=== PATIENT | female | born 1945 | race Two or more races ===

== ENCOUNTER 2017-04-30 12:59 | Inpatient (IN) | payer MEDICARE, OTHER ==
[~2017-04-30] VITALS: Ht 157.5 cm; Wt 64.9 kg
[2017-04-30 13:47] LABS: Basophils # (auto) 0.1 uL; Basophils % (auto) 0.7 % (0.0-2.0); Eosinophils # (auto) 0.1 uL; Eosinophils % (auto) 1.3 % (0.0-7.0); Hematocrit 41.8 % (36.0-46.0); Hemoglobin 13.6 g/dL (12.2-16.2); Lymphocytes # (auto) 2.6 uL; Lymphocytes % (auto) 28.8 % (10.0-50.0); Mean Corpuscular Hemoglobin 29.9 pg (28.0-32.0); Mean Corpuscular Hgb Conc. 32.6 g/dL (32.0-36.0); Mean Corpuscular Volume 91.6 fL (80.0-100.0); Monocytes # (auto) 0.5 uL; Monocytes % (auto) 5.4 % (0.0-12.0); Neutrophils # (auto) 5.8 uL; Neutrophils % (auto) 63.8 % (37.0-80.0); Nucleated Red Blood Cells % 0.1 %; Platelet Count (auto) 260 10^3/uL (140-450); Red Blood Cells 4.56 10^6/uL (4.0-5.20); White Blood Cell 9.1 10^3/uL (4.4-10.8)
[2017-04-30 13:54] LABS: Albumin 3.6 g/dL (3.4-5.0); BUN/Creatinine Ratio 20.7; Calcium 9.6 mg/dL (8.5-10.1); Potassium 3.7 mmol/L (3.5-5.1)
[2017-04-30 14:13] LABS: Bilirubin, Total 0.5 mg/dL (0.2-1.0); Total Protein 7.6 g/dL (6.4-8.2)
[2017-04-30] MEDS ORDERED: NITROGLYCERIN 0.4 MG SL TAB SL PRN ×2 (14:30→14:45)
[2017-04-30] MEDS ORDERED: DEXTROSE (50%) 50ML SYRG IV PRN ×2 (14:30→14:45)
[2017-04-30] MEDS ORDERED: PROMETHAZINE HCL 25 MG/ML 1ML IV PRN ×2 (14:30→14:45)
[2017-04-30] MEDS ORDERED: LACTULOSE 20Gm/30ML SOLN PO PRN ×4 (14:30→14:45)
[2017-04-30] MEDS ORDERED: TEMAZEPAM 15 MG CAP PO PRN (14:30)
[2017-04-30] MEDS ORDERED: MORPHINE SULFATE 4 MG/ML SYR/VIAL IV PRN ×3 (14:30→14:45)
[2017-04-30] MEDS ORDERED: ASPirin 81 mg TAB PO ONE ×3 (14:30→15:45)
[2017-04-30] MEDS ORDERED: OSELTAMIVIR 75 MG CAP PO ONE ×2 (14:30)
[2017-04-30] MEDS ORDERED: ACETAMINOPHEN 500 MG TAB PO PRN ×2 (14:30→14:45)
[2017-04-30] MEDS ORDERED: FUROSEMIDE 40 MG/4 ML VIAL IV ONE ×2 (14:30)
[2017-04-30] MEDS ORDERED: LORazepam 0.5 MG TAB PO PRN (14:30)
[2017-04-30] MEDS ORDERED: HYDROcodone-ACET 5/325MG TAB PO PRN (14:30)
[2017-04-30] MEDS ORDERED: ALBUTEROL SULF 2.5 MG/0.5ML(0.5%) NEB SOLN NEB PRN ×2 (14:30→14:45)
[2017-04-30 15:22] VITALS: BP 149/51
[2017-04-30] MEDS ORDERED: AZITHROMYCIN 500MG/ 250ML 250 ML IV ONE (15:30)
[2017-04-30] MEDS ORDERED: cefTRIAXone 1GM/10ml IVPUSH 10 ML IV ONE (15:30)
[2017-04-30] MEDS ORDERED: ENOXAPARIN SOD 40 MG/0.4 ML SYRINGE SC ONE (15:30)
[2017-04-30] MEDS ORDERED: POTASSIUM CHL 20 Meq TABLET PO ONE (15:45)
[2017-04-30] MEDS ORDERED: NITROGLYCERIN 0.2MG/HR TOPICAL PATCH TD ONE (15:45)
[2017-04-30] MEDS ORDERED: PANTOPRAZOLE 40 MG TAB PO ONE (15:45)
[2017-04-30] MEDS ORDERED: CARVEDILOL 3.125 MG TAB PO ONE (15:45)
[2017-04-30 16:40] VITALS: BP 142/73
[2017-04-30] MEDS: ACCU-CHEK COMFORT CURVE STRIP VI SCH ×2 (17:00→22:07)
[2017-04-30] MEDS ORDERED: ACCU-CHEK COMFORT CURVE STRIP VI SCH (17:00)
[2017-04-30] MEDS ORDERED: InsuLIN REG 1unit/0.01ml Soln (100units/ml) SC SCH (17:00)
[2017-04-30] MEDS: InsuLIN REG 1unit/0.01ml Soln (100units/ml) SC SCH ×2 (17:00→22:07)
[2017-04-30] MEDS ORDERED: PNEUMOCOCCAL VACC POLYS 25 MCG/0.5 ML VIAL IM ONE (17:15)
[2017-04-30] MEDS ORDERED: ALBUTEROL SULF 2.5 MG/0.5ML(0.5%) NEB SOLN NEB SCH (18:00)
[2017-04-30] MEDS: ALBUTEROL SULF 2.5 MG/0.5ML(0.5%) NEB SOLN NEB SCH ×2 (18:45→23:59)
[2017-04-30 20:00] VITALS: BP 119/69
[2017-04-30 21:37] VITALS: BP 119/69
[2017-04-30] MEDS ORDERED: SODIUM CHLOR 0.9% PF (SALINE LOCK) 10ML VIAL IV SCH (22:00)
[2017-04-30] MEDS ORDERED: OSELTAMIVIR 75 MG CAP PO SCH ×2 (22:00)
[2017-04-30] MEDS ORDERED: CARVEDILOL 3.125 MG TAB PO SCH (22:00)
[2017-04-30] MEDS: SODIUM CHLOR 0.9% PF (SALINE LOCK) 10ML VIAL IV SCH (22:05)
[2017-04-30] MEDS: CARVEDILOL 3.125 MG TAB PO SCH (22:06)
[2017-04-30] MEDS: TEMAZEPAM 15 MG CAP PO PRN (23:56)
[2017-05-01 04:50] VITALS: BP 123/64
[2017-05-01] MEDS: ALBUTEROL SULF 2.5 MG/0.5ML(0.5%) NEB SOLN NEB SCH ×3 (06:20→19:45)
[2017-05-01] MEDS: SODIUM CHLOR 0.9% PF (SALINE LOCK) 10ML VIAL IV SCH ×3 (06:31→21:44)
[2017-05-01] MEDS: ACCU-CHEK COMFORT CURVE STRIP VI SCH ×4 (06:31→21:43)
[2017-05-01] MEDS: InsuLIN REG 1unit/0.01ml Soln (100units/ml) SC SCH ×4 (06:32→21:44)
[2017-05-01 06:39] LABS: Urine Bacteria FEW /hpf (None Seen); Urine Blood Negative /uL (Negative); Urine Specific Gravity 1.013 (1.001-1.035); Urine WBC 11 /hpf (0 - 5)
[2017-05-01 06:55] LABS: Basophils # (auto) 0.1 uL; Basophils % (auto) 0.7 % (0.0-2.0); Eosinophils # (auto) 0.3 uL; Eosinophils % (auto) 2.9 % (0.0-7.0); Hematocrit 37.8 % (36.0-46.0); Hemoglobin 12.5 g/dL (12.2-16.2); Lymphocytes # (auto) 3.2 uL; Mean Corpuscular Hemoglobin 30.1 pg (28.0-32.0); Mean Corpuscular Hgb Conc. 33.2 g/dL (32.0-36.0); Mean Corpuscular Volume 90.8 fL (80.0-100.0); Monocytes # (auto) 0.5 uL; Neutrophils # (auto) 4.8 uL; Neutrophils % (auto) 54.4 % (37.0-80.0); Nucleated Red Blood Cells % 0.1 %; Platelet Count (auto) 243 10^3/uL (140-450); Red Blood Cells 4.16 10^6/uL (4.0-5.20); Red Cell Distribution Width 13.6 % (11.8-14.3); White Blood Cell 8.8 10^3/uL (4.4-10.8)
[2017-05-01] MEDS ORDERED: LISI-275 PO (07:03)
[2017-05-01] MEDS ORDERED: LOVA20TA4 PO (07:03)
[2017-05-01] MEDS ORDERED: METF-370 PO (07:03)
[2017-05-01 07:19] LABS: Bilirubin, Total 0.5 mg/dL (0.2-1.0); Calcium 8.9 mg/dL (8.5-10.1); Potassium 3.7 mmol/L (3.5-5.1); Total Protein 6.4 g/dL (6.4-8.2)
[2017-05-01 08:00] VITALS: BP 117/69
[2017-05-01] MEDS: FUROSEMIDE 40 MG/4 ML VIAL IV SCH (08:57)
[2017-05-01] MEDS: ENOXAPARIN SOD 40 MG/0.4 ML SYRINGE SC SCH (08:57)
[2017-05-01] MEDS: ENALAPRIL MALEATE 2.5 MG TAB PO SCH ×2 (08:58→21:34)
[2017-05-01] MEDS: CARVEDILOL 3.125 MG TAB PO SCH ×2 (08:58→21:36)
[2017-05-01] MEDS: POTASSIUM CHL 20 Meq TABLET PO SCH (08:59)
[2017-05-01] MEDS: PANTOPRAZOLE 40 MG TAB PO SCH (08:59)
[2017-05-01] MEDS: ASPirin 81 mg TAB PO SCH (08:59)
[2017-05-01] MEDS ORDERED: cefTRIAXone 1GM/10ml IVPUSH 10 ML IV SCH ×2 (09:00)
[2017-05-01] MEDS: NITROGLYCERIN 0.2MG/HR TOPICAL PATCH TD SCH (09:00)
[2017-05-01] MEDS ORDERED: ASPirin 81 mg TAB PO SCH (10:00)
[2017-05-01] MEDS ORDERED: ENALAPRIL MALEATE 2.5 MG TAB PO SCH ×2 (10:00)
[2017-05-01] MEDS ORDERED: FUROSEMIDE 40 MG/4 ML VIAL IV SCH (10:00)
[2017-05-01] MEDS ORDERED: ENOXAPARIN SOD 40 MG/0.4 ML SYRINGE SC SCH (10:00)
[2017-05-01] MEDS ORDERED: NITROGLYCERIN 0.2MG/HR TOPICAL PATCH TD SCH (10:00)
[2017-05-01] MEDS ORDERED: PANTOPRAZOLE 40 MG TAB PO SCH (10:00)
[2017-05-01] MEDS ORDERED: AZITHROMYCIN 500MG/ 250ML 250 ML IV SCH ×2 (10:00)
[2017-05-01] MEDS ORDERED: POTASSIUM CHL 20 Meq TABLET PO SCH (10:00)
[2017-05-01 12:00] VITALS: BP 107/63
[2017-05-01 17:00] VITALS: BP 127/69
[2017-05-01 20:00] VITALS: BP 101/70
[2017-05-01 22:00] VITALS: BP 127/67
[2017-05-02] MEDS: ALBUTEROL SULF 2.5 MG/0.5ML(0.5%) NEB SOLN NEB SCH ×4 (01:08→19:23)
[2017-05-02 05:00] VITALS: BP 101/57
[2017-05-02 05:45] LABS: Basophils # (auto) 0 uL; Basophils % (auto) 0.5 % (0.0-2.0); Eosinophils # (auto) 0.3 uL; Eosinophils % (auto) 3.6 % (0.0-7.0); Hematocrit 36.4 % (36.0-46.0); Hemoglobin 12.2 g/dL (12.2-16.2); Mean Corpuscular Hemoglobin 30.1 pg (28.0-32.0); Mean Corpuscular Hgb Conc. 33.4 g/dL (32.0-36.0); Mean Corpuscular Volume 90.1 fL (80.0-100.0); Monocytes # (auto) 0.7 uL; Monocytes % (auto) 7.6 % (0.0-12.0); Neutrophils % (auto) 55.3 % (37.0-80.0); Nucleated Red Blood Cells % 0.1 %; Platelet Count (auto) 243 10^3/uL (140-450); Red Blood Cells 4.04 10^6/uL (4.0-5.20); Red Cell Distribution Width 13.5 % (11.8-14.3); White Blood Cell 9.1 10^3/uL (4.4-10.8)
[2017-05-02] MEDS ORDERED: SODIUM CHLORIDE 0.9 % NEB SOLN 3ML NEB ONE ×2 (06:02→11:43)
[2017-05-02 06:04] LABS: Albumin 2.9 g/dL (3.4-5.0); BUN/Creatinine Ratio 22.8; Bilirubin, Total 0.4 mg/dL (0.2-1.0); Calcium 8.5 mg/dL (8.5-10.1); Potassium 3.7 mmol/L (3.5-5.1); Total Protein 6.3 g/dL (6.4-8.2)
[2017-05-02] MEDS: SODIUM CHLOR 0.9% PF (SALINE LOCK) 10ML VIAL IV SCH ×3 (06:24→21:36)
[2017-05-02] MEDS: ACCU-CHEK COMFORT CURVE STRIP VI SCH ×4 (06:24→21:34)
[2017-05-02] MEDS: InsuLIN REG 1unit/0.01ml Soln (100units/ml) SC SCH ×4 (06:27→21:35)
[2017-05-02 08:51] VITALS: BP 126/59
[2017-05-02] MEDS: ENOXAPARIN SOD 40 MG/0.4 ML SYRINGE SC SCH (09:11)
[2017-05-02] MEDS: FUROSEMIDE 40 MG/4 ML VIAL IV SCH (09:11)
[2017-05-02] MEDS: NITROGLYCERIN 0.2MG/HR TOPICAL PATCH TD SCH (09:12)
[2017-05-02] MEDS: POTASSIUM CHL 20 Meq TABLET PO SCH (09:12)
[2017-05-02] MEDS: ENALAPRIL MALEATE 2.5 MG TAB PO SCH ×2 (09:13→21:34)
[2017-05-02] MEDS: PANTOPRAZOLE 40 MG TAB PO SCH (09:13)
[2017-05-02] MEDS: CARVEDILOL 3.125 MG TAB PO SCH ×2 (09:13→21:33)
[2017-05-02] MEDS: ASPirin 81 mg TAB PO SCH (09:13)
[2017-05-02 12:00] VITALS: BP 132/56
[2017-05-02 17:21] VITALS: BP 106/57
[2017-05-02] MEDS: TEMAZEPAM 15 MG CAP PO PRN (21:39)
[2017-05-02 22:09] VITALS: BP 135/65
[2017-05-03] MEDS: ALBUTEROL SULF 2.5 MG/0.5ML(0.5%) NEB SOLN NEB SCH ×4 (00:45→19:08)
[2017-05-03 05:00] VITALS: BP 105/58
[2017-05-03] MEDS: SODIUM CHLOR 0.9% PF (SALINE LOCK) 10ML VIAL IV SCH ×3 (05:45→22:34)
[2017-05-03] MEDS: ACCU-CHEK COMFORT CURVE STRIP VI SCH ×4 (06:01→22:35)
[2017-05-03] MEDS: InsuLIN REG 1unit/0.01ml Soln (100units/ml) SC SCH ×4 (06:02→22:34)
[2017-05-03 09:00] VITALS: BP 112/63
[2017-05-03 09:27] VITALS: BP 105/58
[2017-05-03] MEDS: PANTOPRAZOLE 40 MG TAB PO SCH (09:52)
[2017-05-03] MEDS: POTASSIUM CHL 20 Meq TABLET PO SCH (09:52)
[2017-05-03] MEDS: ASPirin 81 mg TAB PO SCH (09:52)
[2017-05-03] MEDS: ENOXAPARIN SOD 40 MG/0.4 ML SYRINGE SC SCH (09:52)
[2017-05-03] MEDS: CARVEDILOL 3.125 MG TAB PO SCH ×2 (09:53→21:55)
[2017-05-03] MEDS: ENALAPRIL MALEATE 2.5 MG TAB PO SCH ×2 (09:54→21:57)
[2017-05-03] MEDS: NITROGLYCERIN 0.2MG/HR TOPICAL PATCH TD SCH (09:54)
[2017-05-03] MEDS: FUROSEMIDE 40 MG/4 ML VIAL IV SCH (10:01)
[2017-05-03 13:00] VITALS: BP 92/49
[2017-05-03 17:00] VITALS: BP 113/55
[2017-05-03] MEDS: TEMAZEPAM 15 MG CAP PO PRN (21:54)
[2017-05-03 22:00] VITALS: BP 144/77
[2017-05-04] MEDS: ALBUTEROL SULF 2.5 MG/0.5ML(0.5%) NEB SOLN NEB SCH ×4 (00:40→19:33)
[2017-05-04 05:00] VITALS: BP 121/68
[2017-05-04] MEDS: ACCU-CHEK COMFORT CURVE STRIP VI SCH ×4 (07:28→22:24)
[2017-05-04] MEDS: SODIUM CHLOR 0.9% PF (SALINE LOCK) 10ML VIAL IV SCH ×3 (07:28→22:22)
[2017-05-04] MEDS: InsuLIN REG 1unit/0.01ml Soln (100units/ml) SC SCH ×4 (07:29→22:43)
[2017-05-04] MEDS: HYDROcodone-ACET 5/325MG TAB PO PRN ×2 (07:45→13:08)
[2017-05-04] MEDS ORDERED: BUMETANIDE (0.25MG/ML) 4 ML VIAL IV ONE (08:30)
[2017-05-04 08:49] VITALS: BP 102/48
[2017-05-04] MEDS: FUROSEMIDE 40 MG/4 ML VIAL IV SCH (09:47)
[2017-05-04] MEDS: ENOXAPARIN SOD 40 MG/0.4 ML SYRINGE SC SCH (09:47)
[2017-05-04] MEDS: ENALAPRIL MALEATE 2.5 MG TAB PO SCH ×2 (09:48→22:23)
[2017-05-04] MEDS: NITROGLYCERIN 0.2MG/HR TOPICAL PATCH TD SCH (09:49)
[2017-05-04 11:00] VITALS: BP 117/53
[2017-05-04] MEDS: MORPHINE SULFATE 4 MG/ML SYR/VIAL IV PRN ×2 (11:12→17:23)
[2017-05-04] MEDS: LORazepam 0.5 MG TAB PO PRN ×2 (11:12→22:23)
[2017-05-04] MEDS: POTASSIUM CHL 20 Meq TABLET PO SCH (11:14)
[2017-05-04] MEDS: CARVEDILOL 3.125 MG TAB PO SCH ×2 (11:14→22:24)
[2017-05-04] MEDS: ASPirin 81 mg TAB PO SCH (11:14)
[2017-05-04] MEDS: PANTOPRAZOLE 40 MG TAB PO SCH (11:15)
[2017-05-04 14:55] LABS: INR 1.01 (0.9-1.15); Partial Thromboplastin Time 28.2 sec (22.64-33.71)
[2017-05-04 16:00] VITALS: BP 126/65
[2017-05-04 22:26] VITALS: BP 124/56
[2017-05-05] MEDS: ALBUTEROL SULF 2.5 MG/0.5ML(0.5%) NEB SOLN NEB SCH ×4 (01:04→19:51)
[2017-05-05 04:57] VITALS: BP 118/64
[2017-05-05] MEDS: SODIUM CHLOR 0.9% PF (SALINE LOCK) 10ML VIAL IV SCH ×3 (06:04→21:17)
[2017-05-05] MEDS: ACCU-CHEK COMFORT CURVE STRIP VI SCH ×4 (06:05→21:17)
[2017-05-05] MEDS: InsuLIN REG 1unit/0.01ml Soln (100units/ml) SC SCH ×4 (06:05→21:25)
[2017-05-05 08:37] VITALS: BP 130/72
[2017-05-05] MEDS: HYDROcodone-ACET 5/325MG TAB PO PRN ×3 (08:42→22:30)
[2017-05-05] MEDS: MORPHINE SULFATE 4 MG/ML SYR/VIAL IV PRN ×3 (08:57→20:34)
[2017-05-05] MEDS ORDERED: IODIXANOL 320MG/ML 100ML BTL IV ONE (09:24)
[2017-05-05] MEDS ORDERED: LIDOCAINE 2%HCL (LOCAL ANESTH.) INJ 20ML MDV ONE (09:25)
[2017-05-05] MEDS ORDERED: ANGIOMAX 250 MG VIAL IV ONE (09:28)
[2017-05-05] MEDS ORDERED: SODIUM CHL 0.9% 50 ML ONE (09:29)
[2017-05-05] MEDS ORDERED: fentaNYL CITRATE 100 MCG/2 ML VL ONE (09:29)
[2017-05-05] MEDS ORDERED: VERAPAMIL 2.5MG/ML INJ 2ML VIAL IV ONE (09:29)
[2017-05-05] MEDS ORDERED: MIDAZOLAM HCL 1MG/1ML-2 ML VIAL ONE (09:29)
[2017-05-05] MEDS: ENALAPRIL MALEATE 2.5 MG TAB PO SCH ×2 (10:00→21:25)
[2017-05-05] MEDS: ENOXAPARIN SOD 40 MG/0.4 ML SYRINGE SC SCH (10:00)
[2017-05-05 12:17] VITALS: BP 130/96
[2017-05-05] MEDS ORDERED: HEPARIN SODIUM (PORCINE) 5000 UNITS/ML 1ML VIAL ONE (12:22)
[2017-05-05] MEDS ORDERED: CLOPIDOGREL 300 MG TAB PO ONE (12:45)
[2017-05-05] MEDS: FUROSEMIDE 40 MG/4 ML VIAL IV SCH (15:26)
[2017-05-05] MEDS: PANTOPRAZOLE 40 MG TAB PO SCH (15:26)
[2017-05-05] MEDS: POTASSIUM CHL 20 Meq TABLET PO SCH (15:26)
[2017-05-05] MEDS: ASPirin 81 mg TAB PO SCH (15:26)
[2017-05-05] MEDS: CARVEDILOL 3.125 MG TAB PO SCH ×2 (15:27→21:25)
[2017-05-05] MEDS: NITROGLYCERIN 0.2MG/HR TOPICAL PATCH TD SCH (15:28)
[2017-05-05 17:21] VITALS: BP 146/62
[2017-05-05 22:00] VITALS: BP 162/80
[2017-05-06] MEDS: ALBUTEROL SULF 2.5 MG/0.5ML(0.5%) NEB SOLN NEB SCH ×4 (00:48→19:10)
[2017-05-06] MEDS: SODIUM CHLOR 0.9% PF (SALINE LOCK) 10ML VIAL IV SCH ×3 (04:57→21:34)
[2017-05-06 05:00] VITALS: BP 130/70
[2017-05-06] MEDS: ACCU-CHEK COMFORT CURVE STRIP VI SCH ×4 (06:10→21:25)
[2017-05-06] MEDS: InsuLIN REG 1unit/0.01ml Soln (100units/ml) SC SCH ×4 (06:26→21:34)
[2017-05-06 08:16] LABS: Basophils # (auto) 0.1 uL; Basophils % (auto) 0.6 % (0.0-2.0); Eosinophils # (auto) 0 uL; Eosinophils % (auto) 0.2 % (0.0-7.0); Hematocrit 38.4 % (36.0-46.0); Hemoglobin 12.6 g/dL (12.2-16.2); Lymphocytes # (auto) 2.8 uL; Mean Corpuscular Hemoglobin 29.5 pg (28.0-32.0); Mean Corpuscular Hgb Conc. 32.8 g/dL (32.0-36.0); Mean Corpuscular Volume 89.9 fL (80.0-100.0); Monocytes # (auto) 0.7 uL; Monocytes % (auto) 6.2 % (0.0-12.0); Platelet Count (auto) 293 10^3/uL (140-450); Red Blood Cells 4.27 10^6/uL (4.0-5.20); Red Cell Distribution Width 13.6 % (11.8-14.3); White Blood Cell 11.7 10^3/uL (4.4-10.8)
[2017-05-06 08:19] LABS: INR 1.04 (0.9-1.15); Prothrombin Time 11.3 sec (9.37-12.3)
[2017-05-06 08:32] LABS: BUN/Creatinine Ratio 32.3; Calcium 8.8 mg/dL (8.5-10.1); Potassium 3.8 mmol/L (3.5-5.1)
[2017-05-06 09:00] VITALS: BP 119/65
[2017-05-06 09:14] VITALS: BP 130/70
[2017-05-06] MEDS: FUROSEMIDE 40 MG/4 ML VIAL IV SCH (10:37)
[2017-05-06] MEDS: ASPirin 81 mg TAB PO SCH (10:37)
[2017-05-06] MEDS: CARVEDILOL 3.125 MG TAB PO SCH ×2 (10:37→21:33)
[2017-05-06] MEDS: NITROGLYCERIN 0.2MG/HR TOPICAL PATCH TD SCH (10:38)
[2017-05-06] MEDS: CLOPIDOGREL BISULFATE 75 MG TAB PO SCH (10:38)
[2017-05-06] MEDS: PANTOPRAZOLE 40 MG TAB PO SCH (10:38)
[2017-05-06] MEDS: POTASSIUM CHL 20 Meq TABLET PO SCH (10:38)
[2017-05-06] MEDS: ENALAPRIL MALEATE 2.5 MG TAB PO SCH ×2 (10:39→21:33)
[2017-05-06 13:00] VITALS: BP 111/56
[2017-05-06 17:00] VITALS: BP 105/55
[2017-05-06] MEDS: TEMAZEPAM 15 MG CAP PO PRN (21:34)
[2017-05-06 21:47] VITALS: BP 110/55
[2017-05-07] MEDS: ALBUTEROL SULF 2.5 MG/0.5ML(0.5%) NEB SOLN NEB SCH ×4 (00:29→19:04)
[2017-05-07 04:46] VITALS: BP 105/58
[2017-05-07] MEDS: SODIUM CHLOR 0.9% PF (SALINE LOCK) 10ML VIAL IV SCH ×3 (06:31→21:57)
[2017-05-07] MEDS: ACCU-CHEK COMFORT CURVE STRIP VI SCH ×4 (06:31→22:10)
[2017-05-07] MEDS: InsuLIN REG 1unit/0.01ml Soln (100units/ml) SC SCH ×4 (06:34→22:09)
[2017-05-07 08:53] VITALS: BP 116/60
[2017-05-07] MEDS: ASPirin 81 mg TAB PO SCH (10:00)
[2017-05-07] MEDS: FUROSEMIDE 40 MG/4 ML VIAL IV SCH (10:00)
[2017-05-07] MEDS: PANTOPRAZOLE 40 MG TAB PO SCH (10:00)
[2017-05-07] MEDS: NITROGLYCERIN 0.2MG/HR TOPICAL PATCH TD SCH (10:00)
[2017-05-07] MEDS: POTASSIUM CHL 20 Meq TABLET PO SCH (10:00)
[2017-05-07] MEDS: CLOPIDOGREL BISULFATE 75 MG TAB PO SCH (10:00)
[2017-05-07] MEDS: ENALAPRIL MALEATE 2.5 MG TAB PO SCH ×2 (10:00→21:54)
[2017-05-07] MEDS: CARVEDILOL 3.125 MG TAB PO SCH ×2 (10:00→21:55)
[2017-05-07] MEDS ORDERED: ANGIOMAX 250 MG VIAL IV ONE (11:02)
[2017-05-07] MEDS ORDERED: fentaNYL CITRATE 100 MCG/2 ML VL ONE (11:03)
[2017-05-07] MEDS ORDERED: MIDAZOLAM HCL 1MG/1ML-2 ML VIAL ONE (11:03)
[2017-05-07] MEDS ORDERED: SODIUM CHL 0.9% 50 ML ONE (11:03)
[2017-05-07] MEDS ORDERED: VERAPAMIL 2.5MG/ML INJ 2ML VIAL IV ONE (11:03)
[2017-05-07] MEDS ORDERED: CLOPIDOGREL BISULFATE 75 MG TAB ONE (11:07)
[2017-05-07] MEDS ORDERED: ASPirin 325 MG TAB ONE (11:07)
[2017-05-07] MEDS ORDERED: IODIXANOL 320MG/ML 100ML BTL IV ONE (11:07)
[2017-05-07] MEDS ORDERED: LIDOCAINE 2%HCL (LOCAL ANESTH.) INJ 20ML MDV ONE (11:07)
[2017-05-07] MEDS ORDERED: ASPirin 325 MG TAB PO ONE (11:15)
[2017-05-07] MEDS ORDERED: CLOPIDOGREL BISULFATE 75 MG TAB PO ONE (11:15)
[2017-05-07] MEDS ORDERED: ATROPINE SULF 0.5 MG/5ML SYR ONE (11:34)
[2017-05-07 17:14] VITALS: BP 117/60
[2017-05-07 21:35] VITALS: BP 140/7
[2017-05-07] MEDS: TEMAZEPAM 15 MG CAP PO PRN (22:00)
[2017-05-08] MEDS: ALBUTEROL SULF 2.5 MG/0.5ML(0.5%) NEB SOLN NEB SCH ×3 (00:14→12:19)
[2017-05-08 05:06] VITALS: BP 125/56
[2017-05-08] MEDS: SODIUM CHLOR 0.9% PF (SALINE LOCK) 10ML VIAL IV SCH ×2 (06:46→14:55)
[2017-05-08] MEDS: InsuLIN REG 1unit/0.01ml Soln (100units/ml) SC SCH ×2 (06:47→13:41)
[2017-05-08] MEDS: ACCU-CHEK COMFORT CURVE STRIP VI SCH ×2 (06:48→13:42)
[2017-05-08 08:00] VITALS: BP 119/55
[2017-05-08 09:00] VITALS: BP 119/55
[2017-05-08] MEDS: CLOPIDOGREL BISULFATE 75 MG TAB PO SCH (10:16)
[2017-05-08] MEDS: ASPirin 81 mg TAB PO SCH (10:17)
[2017-05-08] MEDS: CARVEDILOL 3.125 MG TAB PO SCH (10:17)
[2017-05-08] MEDS: ENALAPRIL MALEATE 2.5 MG TAB PO SCH (10:17)
[2017-05-08] MEDS: POTASSIUM CHL 20 Meq TABLET PO SCH (10:17)
[2017-05-08] MEDS: PANTOPRAZOLE 40 MG TAB PO SCH (10:17)
[2017-05-08] MEDS: FUROSEMIDE 40 MG/4 ML VIAL IV SCH (10:18)
[2017-05-08] MEDS: NITROGLYCERIN 0.2MG/HR TOPICAL PATCH TD SCH (10:19)
[2017-05-08 13:00] VITALS: BP 121/53
[2017-05-08 16:12] VITALS: BP 121/53
[2017-05-08 17:00] VITALS: BP 120/58
== END 2017-05-08 18:00 | disposition home or self-care (01) | DRG 246 ==
LOC: ER 12:59 → TELE 13:00 → ER 13:25 → TELE-EAST 16:18
PROVIDERS: ADMIT Internal Medicine; ATTEND Internal Medicine
PROC: 4A023N7 Measurement of Cardiac Sampling and Pressure, Left Heart, Percutaneous Approach (ICD-10-PCS; principal; 2017-05-05)
PROC: B2111ZZ Fluoroscopy of Multiple Coronary Arteries using Low Osmolar Contrast (ICD-10-PCS; 2017-05-05)
PROC: 027135Z Dilation of Coronary Artery, Two Arteries with Two Drug-eluting Intraluminal Devices, Percutaneous Approach (ICD-10-PCS; 2017-05-07)
PROC: 4A023N7 Measurement of Cardiac Sampling and Pressure, Left Heart, Percutaneous Approach (ICD-10-PCS; 2017-05-07)
PROC: B2111ZZ Fluoroscopy of Multiple Coronary Arteries using Low Osmolar Contrast (ICD-10-PCS; 2017-05-07)
DX: I21.4 Non-ST elevation (NSTEMI) myocardial infarction (principal); I50.33 Acute on chronic diastolic (congestive) heart failure; E11.65 Type 2 diabetes mellitus with hyperglycemia; E66.01 Morbid (severe) obesity due to excess calories; I34.0 Nonrheumatic mitral (valve) insufficiency; Z68.43 Body mass index [BMI] 50.0-59.9, adult; I11.0 Hypertensive heart disease with heart failure; K59.00 Constipation, unspecified; F41.9 Anxiety disorder, unspecified; G47.00 Insomnia, unspecified; I25.10 Atherosclerotic heart disease of native coronary artery without angina pectoris; E78.5 Hyperlipidemia, unspecified; Z23 Encounter for immunization; Z82.49 Family history of ischemic heart disease and other diseases of the circulatory system; Z86.73 Personal history of transient ischemic attack (TIA), and cerebral infarction without residual deficits; Z71.3 Dietary counseling and surveillance; Z68.26 Body mass index [BMI] 26.0-26.9, adult
CPT/HCPCS: 36415; 71046; 80048; 80053; 80061; 81001; 82550; 82962; 83036; 83880; 84443; 84484; 85025; 85610; 85730; 87400; 92928; 93005; 93306; 93458; 94640; 96372; 96374; 96375; 99152; 99153; 99291; C1874; J0461; J1815; J2250; Q9967

== ENCOUNTER 2017-08-07 16:58 | Inpatient (IN) | payer OTHER, MEDICAID ==
[~2017-08-07] VITALS: Ht 157.5 cm; Wt 78.1 kg
[~2017-08-07 16:58] MED LIST: LISI-275 PO; LOVA20TA4 PO; METF-370 PO
[2017-08-07 19:16] LABS: Basophils # (auto) 0.1 uL; Basophils % (auto) 0.5 % (0.0-2.0); Eosinophils # (auto) 0 uL; Eosinophils % (auto) 0.1 % (0.0-7.0); Hematocrit 42.5 % (36.0-46.0); Lymphocytes # (auto) 2.6 uL; Lymphocytes % (auto) 12.5 % (10.0-50.0); Mean Corpuscular Hemoglobin 29.2 pg (28.0-32.0); Mean Corpuscular Volume 88.3 fL (80.0-100.0); Monocytes # (auto) 1.7 uL; Monocytes % (auto) 8.3 % (0.0-12.0); Neutrophils # (auto) 16.1 uL; Neutrophils % (auto) 78.6 % (37.0-80.0); Platelet Count (auto) 251 10^3/uL (140-450); Red Blood Cells 4.81 10^6/uL (4.0-5.20); Red Cell Distribution Width 14.3 % (11.8-14.3); White Blood Cell 20.5 10^3/uL (4.4-10.8)
[2017-08-07 19:21] LABS: Alanine Aminotransferase 18 U/L (13-56); Anion Gap 12 (5-15); Aspartate Aminotransferase 12 U/L (15-37); BUN/Creatinine Ratio 23.9; Blood Urea Nitrogen 26 mg/dL (7-18); Calcium 9.1 mg/dL (8.5-10.1); Carbon Dioxide 24 mmol/L (21-32); Chloride 97 mmol/L (98-107); GFR African American 63 mL/min; GFR Non-African American 52 mL/min; Magnesium 2.2 mg/dL (1.6-2.6); Potassium 3.7 mmol/L (3.5-5.1); Sodium 133 mmol/L (136-145)
[2017-08-07 19:26] LABS: Alkaline Phosphatase 68 U/L (45-117); Bilirubin, Total 0.9 mg/dL (0.2-1.0); Total Protein 7.6 g/dL (6.4-8.2)
[2017-08-07 19:49] LABS: Glucose 409 mg/dL (74-106)
[2017-08-07] MEDS ORDERED: DEXTROSE (50%) 50ML SYRG IV PRN (21:15)
[2017-08-07] MEDS ORDERED: ONDANSETRON HCL 4 MG/2 ML VIAL IV PRN (21:15)
[2017-08-07] MEDS ORDERED: LEVOFLOXACIN 500MG 100 ML IV ONE (21:15)
[2017-08-07] MEDS ORDERED: TEMAZEPAM 15 MG CAP PO PRN (21:15)
[2017-08-07] MEDS ORDERED: DOCUSATE SOD 100 MG CAP PO PRN (21:15)
[2017-08-07] MEDS ORDERED: NITROGLYCERIN 0.4 MG SL TAB SL PRN (21:15)
[2017-08-07] MEDS ORDERED: ACETAMINOPHEN 325 MG TAB PO PRN (21:15)
[2017-08-07] MEDS ORDERED: MORPHINE SULFATE 8mg/ml INJ SDV IV PRN (21:15)
[2017-08-07 21:47] LABS: Urine Bacteria MANY /hpf (None Seen); Urine Blood Negative /uL (Negative); Urine Hyaline Cast FEW /lpf (0 - 2); Urine Mucus FEW (None Seen); Urine Specific Gravity 1.026 (1.001-1.035); Urine WBC 30 /hpf (0 - 5); Urine WBC Clumps PRESENT /hpf (None Seen)
[2017-08-07] MEDS: PRAVASTATIN SODIUM 20 MG TAB PO SCH (22:11)
[2017-08-07] MEDS: FAMOTIDINE 20 MG TAB PO SCH (22:11)
[2017-08-07] MEDS: InsuLIN REG 1unit/0.01ml Soln (100units/ml) SC SCH (22:13)
[2017-08-07] MEDS ORDERED: cefTRIAXone 1GM/10ml IVPUSH 10 ML IV ONE (22:45)
[2017-08-07 23:17] VITALS: BP 137/59
[2017-08-08] MEDS ORDERED: InsuLIN REG 1unit/0.01ml Soln (100units/ml) SC ONE (01:15)
[2017-08-08 01:42] VITALS: BP 137/59
[2017-08-08] MEDS ORDERED: GLIP-115 PO (02:40)
[2017-08-08] MEDS ORDERED: MECL-87 PO (02:40)
[2017-08-08] MEDS ORDERED: CLOP75TA41 PO (02:40)
[2017-08-08] MEDS ORDERED: CHOL20007 PO (02:40)
[2017-08-08] MEDS ORDERED: ALPR0.254 PO (02:40)
[2017-08-08] MEDS ORDERED: GABA300C10 PO (02:40)
[2017-08-08 05:00] VITALS: BP 157/86
[2017-08-08] MEDS: HYDROcodone-ACET 5/325MG TAB PO PRN ×2 (05:14→16:06)
[2017-08-08] MEDS: ACCU-CHEK COMFORT CURVE STRIP VI SCH ×5 (06:01→23:34)
[2017-08-08] MEDS: InsuLIN REG 1unit/0.01ml Soln (100units/ml) SC SCH ×4 (06:40→23:34)
[2017-08-08 07:02] LABS: Basophils # (auto) 0.1 uL; Basophils % (auto) 0.4 % (0.0-2.0); Eosinophils # (auto) 0 uL; Eosinophils % (auto) 0.2 % (0.0-7.0); Hematocrit 40.5 % (36.0-46.0); Hemoglobin 13.7 g/dL (12.2-16.2); Lymphocytes # (auto) 2.1 uL; Lymphocytes % (auto) 11.8 % (10.0-50.0); Mean Corpuscular Hemoglobin 29.7 pg (28.0-32.0); Mean Corpuscular Hgb Conc. 33.8 g/dL (32.0-36.0); Mean Corpuscular Volume 87.8 fL (80.0-100.0); Monocytes # (auto) 1.3 uL; Monocytes % (auto) 7.3 % (0.0-12.0); Neutrophils # (auto) 14.1 uL; Neutrophils % (auto) 80.3 % (37.0-80.0); Platelet Count (auto) 253 10^3/uL (140-450); Red Blood Cells 4.61 10^6/uL (4.0-5.20); Red Cell Distribution Width 14.3 % (11.8-14.3); White Blood Cell 17.6 10^3/uL (4.4-10.8)
[2017-08-08 07:11] LABS: Albumin 2.8 g/dL (3.4-5.0); BUN/Creatinine Ratio 36.2; Potassium 3.4 mmol/L (3.5-5.1)
[2017-08-08 07:14] LABS: Total Protein 7.7 g/dL (6.4-8.2)
[2017-08-08 09:00] VITALS: BP 145/69
[2017-08-08] MEDS: CLOPIDOGREL BISULFATE 75 MG TAB PO SCH (09:41)
[2017-08-08] MEDS: FAMOTIDINE 20 MG TAB PO SCH ×2 (09:41→21:33)
[2017-08-08] MEDS: cefTRIAXone 1GM/10ml IVPUSH 10 ML IV SCH (09:41)
[2017-08-08] MEDS: LEVOFLOXACIN 500MG 100 ML IV SCH (09:42)
[2017-08-08] MEDS: LISINOPRIL 10 MG TAB PO SCH (09:42)
[2017-08-08 13:00] VITALS: BP 156/68
[2017-08-08] MEDS: SODIUM CHLORIDE 0.9% 1,000 ML IV SCH (13:14)
[2017-08-08] MEDS ORDERED: LORazepam 2MG/ML-1ML VIAL IV PRN (15:45)
[2017-08-08 17:58] VITALS: BP 166/75
[2017-08-08] MEDS: PRAVASTATIN SODIUM 20 MG TAB PO SCH (21:33)
[2017-08-08 22:00] VITALS: BP 121/66
[2017-08-09 05:00] VITALS: BP 137/60
[2017-08-09] MEDS: InsuLIN REG 1unit/0.01ml Soln (100units/ml) SC SCH ×4 (05:43→23:36)
[2017-08-09] MEDS: ACCU-CHEK COMFORT CURVE STRIP VI SCH ×4 (05:43→23:37)
[2017-08-09 07:23] LABS: Basophils # (auto) 0 uL; Basophils % (auto) 0.3 % (0.0-2.0); Eosinophils # (auto) 0.1 uL; Eosinophils % (auto) 1.2 % (0.0-7.0); Hematocrit 40.9 % (36.0-46.0); Hemoglobin 13.5 g/dL (12.2-16.2); Lymphocytes # (auto) 2.5 uL; Lymphocytes % (auto) 20.3 % (10.0-50.0); Mean Corpuscular Hemoglobin 29.6 pg (28.0-32.0); Mean Corpuscular Hgb Conc. 33.1 g/dL (32.0-36.0); Mean Corpuscular Volume 89.5 fL (80.0-100.0); Monocytes # (auto) 1.1 uL; Neutrophils # (auto) 8.6 uL; Neutrophils % (auto) 69.2 % (37.0-80.0); Platelet Count (auto) 271 10^3/uL (140-450); Red Blood Cells 4.58 10^6/uL (4.0-5.20); Red Cell Distribution Width 14.2 % (11.8-14.3); White Blood Cell 12.5 10^3/uL (4.4-10.8)
[2017-08-09 07:46] LABS: Albumin 2.6 g/dL (3.4-5.0); BUN/Creatinine Ratio 30.4; Calcium 9.3 mg/dL (8.5-10.1); Potassium 3.7 mmol/L (3.5-5.1)
[2017-08-09 07:49] LABS: Bilirubin, Total 0.7 mg/dL (0.2-1.0)
[2017-08-09] MEDS: SODIUM CHLORIDE 0.9% 1,000 ML IV SCH (08:55)
[2017-08-09 09:36] VITALS: BP 124/59
[2017-08-09] MEDS: FAMOTIDINE 20 MG TAB PO SCH ×2 (09:55→21:22)
[2017-08-09] MEDS: cefTRIAXone 1GM/10ml IVPUSH 10 ML IV SCH (09:55)
[2017-08-09] MEDS: CLOPIDOGREL BISULFATE 75 MG TAB PO SCH (09:55)
[2017-08-09] MEDS: LISINOPRIL 10 MG TAB PO SCH (09:56)
[2017-08-09] MEDS: LEVOFLOXACIN 500MG 100 ML IV SCH (09:59)
[2017-08-09] MEDS: HYDROcodone-ACET 5/325MG TAB PO PRN ×2 (10:06→21:22)
[2017-08-09 12:32] VITALS: BP 116/49
[2017-08-09 17:00] VITALS: BP 134/63
[2017-08-09] MEDS: PRAVASTATIN SODIUM 20 MG TAB PO SCH (21:22)
[2017-08-09 22:00] VITALS: BP 160/80
[2017-08-10] MEDS: SODIUM CHLORIDE 0.9% 1,000 ML IV SCH (04:45)
[2017-08-10 05:09] VITALS: BP 119/58
[2017-08-10] MEDS: InsuLIN REG 1unit/0.01ml Soln (100units/ml) SC SCH ×3 (05:32→18:40)
[2017-08-10] MEDS: ACCU-CHEK COMFORT CURVE STRIP VI SCH ×3 (05:33→18:25)
[2017-08-10 09:00] VITALS: BP 156/70
[2017-08-10 09:19] LABS: Folate (Folic Acid) 15.86 ng/mL (5.38-24)
[2017-08-10] MEDS: FAMOTIDINE 20 MG TAB PO SCH (10:35)
[2017-08-10] MEDS: CLOPIDOGREL BISULFATE 75 MG TAB PO SCH (10:35)
[2017-08-10] MEDS: LISINOPRIL 10 MG TAB PO SCH (10:35)
[2017-08-10] MEDS: LEVOFLOXACIN 500MG 100 ML IV SCH (10:36)
[2017-08-10 13:00] VITALS: BP 175/69
[2017-08-10 17:00] VITALS: BP 165/66
[2017-08-10] MEDS ORDERED: LORazepam 2MG/ML-1ML VIAL IV PRN (18:15)
[2017-08-10 21:21] VITALS: BP 145/58
[2017-08-10] MEDS ORDERED: ATORVASTATIN 20 MG TAB PO SCH (22:00)
== END 2017-08-10 21:48 | disposition home or self-care (01) | DRG 64 ==
LOC: ER 17:04 → TELE 17:05 → TELE-CENTR 22:45
PROVIDERS: ADMIT Nurse Practitioner; ATTEND Internal Medicine
DX: I63.9 Cerebral infarction, unspecified (principal); G93.41 Metabolic encephalopathy; R65.10 Systemic inflammatory response syndrome (SIRS) of non-infectious origin without acute organ dysfunction; E11.65 Type 2 diabetes mellitus with hyperglycemia; E86.0 Dehydration; G30.9 Alzheimer's disease, unspecified; F02.80 Dementia in other diseases classified elsewhere, unspecified severity, without behavioral disturbance, psychotic disturbance, mood disturbance, and anxiety; N39.0 Urinary tract infection, site not specified; W18.39XA Other fall on same level, initial encounter; E78.5 Hyperlipidemia, unspecified; I10 Essential (primary) hypertension; G89.29 Other chronic pain; R26.9 Unspecified abnormalities of gait and mobility; R29.6 Repeated falls; S13.4XXA Sprain of ligaments of cervical spine, initial encounter; Y93.89 Activity, other specified; Y92.091 Bathroom in other non-institutional residence as the place of occurrence of the external cause; Y99.8 Other external cause status; Z79.02 Long term (current) use of antithrombotics/antiplatelets; Z79.82 Long term (current) use of aspirin; Z79.899 Other long term (current) drug therapy; Z86.73 Personal history of transient ischemic attack (TIA), and cerebral infarction without residual deficits; Z82.3 Family history of stroke; Z82.49 Family history of ischemic heart disease and other diseases of the circulatory system; Z83.3 Family history of diabetes mellitus
CPT/HCPCS: 36415; 70450; 70551; 71045; 72125; 72141; 80053; 81001; 82550; 82607; 82746; 82962; 83735; 84443; 84484; 85025; 87040; 93005; 94761; 96361; 96365; 96375; 97116; 97163; 97530; J1815; J1956; J2405

== ENCOUNTER 2018-10-25 12:19 | Emergency (ER) | payer OTHER, MEDICAID ==
[~2018-10-25] VITALS: Ht 157.5 cm; Wt 77.1 kg
[~2018-10-25 12:19] MED LIST changes: +ALPR0.254 PO; +CHOL20007 PO; +CLOP75TA41 PO; +GABA300C10 PO; +GLIP5TAB12 PO; +MECL-87 PO
[2018-10-25 13:52] LABS: Urine Bacteria MANY /hpf (None Seen); Urine Blood Negative /uL (Negative); Urine Specific Gravity 1.009 (1.001-1.035); Urine WBC 6 /hpf (0 - 5)
[2018-10-25 14:23] LABS: Basophils # (auto) 0.1 uL; Basophils % (auto) 0.6 % (0.0-2.0); Eosinophils # (auto) 0.2 uL; Eosinophils % (auto) 1.9 % (0.0-7.0); Hematocrit 39.5 % (36.0-46.0); Hemoglobin 13.1 g/dL (12.2-16.2); Lymphocytes # (auto) 3.4 uL; Lymphocytes % (auto) 31.7 % (10.0-50.0); Mean Corpuscular Hgb Conc. 33.2 g/dL (32.0-36.0); Mean Corpuscular Volume 90.6 fL (80.0-100.0); Monocytes # (auto) 0.7 uL; Monocytes % (auto) 6.7 % (0.0-12.0); Neutrophils # (auto) 6.2 uL; Neutrophils % (auto) 59.1 % (37.0-80.0); Platelet Count (auto) 224 10^3/uL (140-450); Red Blood Cells 4.36 10^6/uL (4.0-5.20); Red Cell Distribution Width 14.4 % (11.8-14.3); White Blood Cell 10.6 10^3/uL (4.4-10.8)
[2018-10-25 14:36] LABS: Alanine Aminotransferase 15 U/L (13-56); Albumin 3.5 g/dL (3.4-5.0); Amylase 50 U/L (25-115); Aspartate Aminotransferase 18 U/L (15-37); BUN/Creatinine Ratio 20.3; Blood Urea Nitrogen 16 mg/dL (7-18); Carbon Dioxide 24 mmol/L (21-32); GFR African American 92 mL/min; GFR Non-African American 76 mL/min; Glucose 66 mg/dL (74-106); Lipase 142 U/L (73-393)
[2018-10-25 15:27] LABS: Alkaline Phosphatase 63 U/L (45-117); Anion Gap 11 (5-15); Bilirubin, Total 0.2 mg/dL (0.2-1.0); Chloride 105 mmol/L (98-107); Potassium 3.7 mmol/L (3.5-5.1); Sodium 140 mmol/L (136-145); Total Protein 7.5 g/dL (6.4-8.2)
[2018-10-25 16:19] VITALS: BP 143/69
== END 2018-10-25 16:26 | disposition home or self-care (01) ==
LOC: ER 12:27
DX: N39.0 Urinary tract infection, site not specified (principal); I10 Essential (primary) hypertension; E11.9 Type 2 diabetes mellitus without complications; E78.5 Hyperlipidemia, unspecified; I25.2 Old myocardial infarction; Z79.01 Long term (current) use of anticoagulants; Z86.73 Personal history of transient ischemic attack (TIA), and cerebral infarction without residual deficits; Z79.84 Long term (current) use of oral hypoglycemic drugs; Z79.899 Other long term (current) drug therapy; Z95.0 Presence of cardiac pacemaker
CPT/HCPCS: 36415; 71045; 74176; 80053; 81001; 82150; 83690; 84484; 85025; 93005